=== PATIENT | male | born 1990 | race Caucasian/White ===

== ENCOUNTER 2021-04-27 16:56 | Emergency (ER) | payer OTHER ==
[2021-04-27 17:06] VITALS: BP 137/85; PULSE 70; RESP 18; TEMP 98.8
--- NOTE | 2021-04-27 17:52 | ED ---
Upper Extremity HPI - General Chief Complaint: Extremity Injury, Upper Stated Complaint: Staple in finger Time Seen by Provider: 04/27/21 17:09 Source: patient, RN notes reviewed Mode of arrival: ambulatory Limitations: no limitations - History of Present Illness Initial Comments: This is a 30 year old male who presents to the emergency department for a staple in his left fourth finger. He was using a staple gun at work and held it the wrong way, causing the injury. Injury occurred less than an hour [employer]. He is worried that it may be in the bone, as it feels stuck when he tries to pull it. Denies any substantial bleeding. He is up to date on his Tetanus vaccine through the . Complaint: Injury to:: finger Other Extremity Injury: Fingers: Left (Left 4th finger) Other Injuries: none Place: work - Related Data Home Medications Medication Instructions Recorded Confirmed Prazosin [Minipress] 1 mg PO HS 04/27/21 04/27/21 QUEtiapine FUMARATE 150 mg PO HS 04/27/21 04/27/21 Sertraline [Zoloft] 100 mg PO HS 04/27/21 04/27/21 Previous Rx's Medication Instructions Recorded Cephalexin [Keflex] 1,000 mg PO Q12HR 5 Days #20 cap 04/27/21 Allergies Allergy/AdvReac Type Severity Reaction Status Date / Time No Known Allergies Allergy Verified 04/27/21 17:32 Review of Systems ROS Statement: Those systems with pertinent positive or pertinent negative responses have been documented in the HPI. ROS Other: All systems not noted in ROS Statement are negative. Constitutional: Denies: fever, chills Respiratory: Denies: cough, dyspnea Cardiovascular: Denies: chest pain, palpitations Gastrointestinal: Denies: abdominal pain, nausea, vomiting Skin: Reports: other (staple in the left 4th finger) Past Medical History Past Medical History: No Reported History History of Any Multi-Drug Resistant Organisms: None Reported Past Surgical History: No Surgical Hx Reported Past Psychological History: Anxiety, Depression, PTSD Smoking Status: Never smoker Past Alcohol Use History: Occasional Past Drug Use History: None Reported General Exam Limitations: no limitations General appearance: alert, in no apparent distress Head exam: Present: atraumatic, normocephalic, normal inspection Respiratory exam: Present: normal lung sounds bilaterally. Absent: respiratory distress, wheezes, rales, rhonchi, stridor Cardiovascular Exam: Present: regular rate, normal rhythm, normal heart sounds. Absent: systolic murmur, diastolic murmur, rubs, gallop, clicks Neurological exam: Present: alert, oriented X3, CN II-XII intact Psychiatric exam: Present: normal affect, normal mood Skin exam: Present: other (Staple in the left 4th finger, bleeding controlled.) Course Vital Signs 04/27/21 17:01 Temperature 98.8 F Pulse Rate 70 Respiratory 18 Rate Blood Pressure 137/85 O2 Sat by Pulse 98 Oximetry Procedures - Forgein Body Removal Soft Tissue Consent Obtained: verbal consent Site: hand (left 4th finger) Anesthetic Used: lidocaine 1% (digital nerve block) Amount (mLs): 2 Foreign Body Suspected: Other (staple) Foreign Body Removed: yes Foreign Body Removal Technique: Instrumentation (staple remover and tweezers) Patient Tolerated Procedure: well - Nerve Block Consent Obtained: verbal consent Local Anesthetic Used: Lidocaine 1% Amount of anesthesia used: 2 Side: left Nerve Blocks: digital (left 4th finger) Procedure Successful: Yes Complications: none Patient Tolerated Procedure: well Medical Decision Making - Medical Decision Making This is a 30 year old male who presents to the emergency department after getting a staple stuck in his left 4th finger. XR obtained to rule out any bone involvement and the staple was found to just be in the tissue. Patient requested we numb the area before proceeding and a digital block was performed successfully. Staple remover was used, and the staple broke in half, with one half coming out successfully and the other half remaining in the finger. Tweezers were used to successfully remove the other half of the staple left in the finger. Repeat XR was obtained which revealed no residual foreign bodies. Patient will be discharged home with 5 days of Keflex for infection prevention. Referral was also placed to Dr. Terrell, orthopedic hand specialist, for follow up in the event there is tendon involvement or other injury. Tetanus is UTD as stated by patient per requirements. Return precautions reviewed in depth, the patient is instructed to return to the emergency department if he develops symptoms including but not limited to swelling, heat, erythema, or drainage from the wound. Patient verbalized understanding. This case was discussed in detail with the attending ED physician. Presentation, findings, and treatment plan discussed in detail as well. Disposition Clinical Impression: Injury of left ring finger Disposition: HOME SELF-CARE Instructions (If sedation given, give patient instructions): Puncture Wound (ED) Additional Instructions: Return to the emergency department if you develop fevers, redness, swelling, or drainage of pus from the finger. Follow up with Dr. Terrell, orthopedics, to rule out any further injury. Take antibiotics as prescribed for the entire duration. Prescriptions: Cephalexin [Keflex] 1,000 mg PO Q12HR 5 Days #20 cap Is patient prescribed a controlled substance at d/c from ED?: No Referrals: Georgie Jiménez MD [Primary Care Provider] - 1-2 days Ludin Terrell DO [Doctor of Osteopathic Medicine] - 1-2 days
[2021-04-27] MEDS ORDERED: LIDOCAINE 1% INJ 10MG/ML (20 ML MDV) SQ ONE (18:04)
--- NOTE | 2021-04-27 18:09 | XR ---
EXAMINATION TYPE: XR hand complete LT DATE OF EXAM: 04/27/2021 COMPARISON: NONE HISTORY: Trauma TECHNIQUE: 3 views FINDINGS: There is a metal staple embedded in the distal phalanx of the ring finger left hand. I see no fracture line. There is amputation deformity of the tuft of the distal phalanx of the index finger . The metacarpals are intact. IMPRESSION: There is a staple foreign body in the distal phalanx of the left ring finger on the anter ior aspect.
--- NOTE | 2021-04-27 19:14 | XR ---
EXAMINATION TYPE: XR hand complete LT DATE OF EXAM: 04/27/2021 COMPARISON: NONE HISTORY: Foreign body removal TECHNIQUE: 3 views FINDINGS: I see no fracture nor dislocation. Joint spaces are normal. There is amputation deformity o f the tip of the index finger. No evidence of a foreign body. IMPRESSION: There is removal of the staple foreign body in the ring finger compared to recent exam.
== END 2021-04-27 19:02 | disposition home or self-care (01) ==
LOC: EC 16:56
DX: S60.455A Superficial foreign body of left ring finger, initial encounter (principal); F32.A Depression, unspecified; F41.9 Anxiety disorder, unspecified; Z79.899 Other long term (current) drug therapy; W45.8XXA Other foreign body or object entering through skin, initial encounter
CPT/HCPCS: 73130; 64450; 99283; J2001

== ENCOUNTER 2024-03-19 19:10 | Emergency (ER) | payer BC, OTHER ==
[2024-03-19 19:27] VITALS: BP 140/70; PULSE 58; RESP 18; TEMP 98.3
--- NOTE | 2024-03-19 19:40 | ED ---
General Adult HPI - General Chief complaint: Skin/Abscess/Foreign Body Stated complaint: rt hand pain Time Seen by Provider: 03/19/24 19:23 Source: patient, RN notes reviewed, old records reviewed Mode of arrival: ambulatory Limitations: no limitations - History of Present Illness Initial comments: 33-year-old male presenting with injury to the right hand. Patient was working on a very cold metal portion of airplane where his right hand was pressed against cold metal for an extended period of time. He states when he removed his hand the flesh at the base of his thumb was white. He did rewarm this and states that the initial injury occurred yesterday and today he had to do the same thing and injured a second location of his hand. He is able to move his hand freely. He denies significant pain. He states his tetanus is up-to-date. - Related Data Home Medications Medication Instructions Recorded Confirmed Prazosin [Minipress] 1 mg PO HS 04/27/21 04/27/21 QUEtiapine FUMARATE 150 mg PO HS 04/27/21 04/27/21 Sertraline [Zoloft] 100 mg PO HS 04/27/21 04/27/21 Previous Rx's Medication Instructions Recorded Cephalexin [Keflex] 1,000 mg PO Q12HR 5 Days #20 cap 04/27/21 Allergies Allergy/AdvReac Type Severity Reaction Status Date / Time No Known Allergies Allergy Verified 03/19/24 19:27 Review of Systems ROS Statement: Those systems with pertinent positive or pertinent negative responses have been documented in the HPI. ROS Other: All systems not noted in ROS Statement are negative. Past Medical History Past Medical History: No Reported History History of Any Multi-Drug Resistant Organisms: None Reported Past Surgical History: No Surgical Hx Reported Past Psychological History: Anxiety, Depression, PTSD Smoking Status: Never smoker Past Alcohol Use History: Occasional Past Drug Use History: None Reported General Exam Limitations: no limitations General appearance: alert, in no apparent distress Head exam: Present: atraumatic, normocephalic Eye exam: Present: normal appearance, PERRL ENT exam: Present: normal exam Neck exam: Present: normal inspection. Absent: tenderness Respiratory exam: Present: normal lung sounds bilaterally. Absent: respiratory distress Cardiovascular Exam: Present: regular rate, normal rhythm GI/Abdominal exam: Present: soft. Absent: distended, tenderness Extremities exam: Present: other (Erythema to the dorsum of the right hand at the base of the thumb approximately 8 cm. Normal cap refill, no blistering) Course Vital Signs 03/19/24 19:22 Temperature 98.3 F Pulse Rate 58 L Respiratory 18 Rate Blood Pressure 140/70 O2 Sat by Pulse 98 Oximetry Medical Decision Making - Medical Decision Making Was pt. sent in by a medical professional or institution (, [facility], [employer], urgent care, hospital, or skilled nursing...) When possible be specific @ -No Did you speak to anyone other than the patient for history (EMS, parent, family, police, friend...)? What history was obtained from this source @ -No Did you review nursing and triage notes (agree or disagree)? Why? @ -I reviewed and agree with nursing and triage notes Were old charts reviewed (outside hosp., previous admission, EMS record, old EKG, old radiological studies, urgent care reports/EKG's, skilled nursing records)? Report findings @ -No old charts were reviewed Differential Diagnosis frostbite, chilblains, EKG interpreted by me (3pts min.). @ -As above X-rays interpreted by me (1pt min.). @ -None done CT interpreted by me (1pt min.). @ -None done U/S interpreted by me (1pt. min.). @ -None done What testing was considered but not performed or refused? (CT, X-rays, U/S, labs)? Why? @ -None What meds were considered but not given or refused? Why? @ -None Did you discuss the management of the patient with other professionals (professionals i.e. , [facility], [employer], lab, RT, psych nurse, older adult social work specialist, furnace stock inspector, teacher, fourth officer, pillowcase cutter)? Give summary @ -No Was smoking cessation discussed for >3mins.? @ -No Was critical care preformed (if so, how long)? @ -No Were there social determinants of health that impacted care today? How? (Homelessness, low income, unemployed, alcoholism, drug addiction, transportation, low edu. Level, literacy, decrease access to med. care, skilled nursing, rehab)? @ -No Was there de-escalation of care discussed even if they declined (Discuss DNR or withdrawal of care, Hospice)? DNR status @ -No What co-morbidities impacted this encounter? (DM, HTN, Smoking, COPD, CAD, Cancer, CVA, ARF, Chemo, Hep., AIDS, mental health diagnosis, sleep apnea, morbid obesity)? @ -None Was patient admitted / discharged? Hospital course, mention meds given and route, prescriptions, significant lab abnormalities, going to OR and other pertinent info. @ -33-year-old male with superficial cold injury to the right hand. This is on the dorsum of the hand at the base of the thumb. It normal cap refill, no blistering tetanus up-to-date. Undiagnosed new problem with uncertain prognosis? @ -No Drug Therapy requiring intensive monitoring for toxicity (Heparin, Nitro, Insulin, Cardizem)? @ -No Were any procedures done? @ -No Diagnosis/symptom? @Frostbite Acute, or Chronic, or Acute on Chronic? @ -[Acute Uncomplicated (without systemic symptoms) or Complicated (systemic symptoms)? @ -Default Side effects of treatment? @ -No Exacerbation, Progression, or Severe Exacerbation? @ -No Poses a threat to life or bodily function? How? (Chest pain, [place], [place], pneumonia, PE, COPD, DKA, ARF, appy, cholecystitis, CVA, Diverticulitis, Homicidal, Suicidal, threat to staff... and all critical care pts) @ -No Disposition Clinical Impression: Frostbite Disposition: HOME SELF-CARE Condition: Good Instructions (If sedation given, give patient instructions): Frostbite (ED) Is patient prescribed a controlled substance at d/c from ED?: No Referrals: Georgie Jiménez MD [Primary Care Provider] - 1-2 days Time of Disposition: 19:40
== END 2024-03-19 19:45 | disposition home or self-care (01) ==
LOC: EC 19:10
DX: T33.521A Superficial frostbite of right hand, initial encounter (principal); X31.XXXA Exposure to excessive natural cold, initial encounter
CPT/HCPCS: 99283